=== PATIENT | male | born 1960 | race Caucasian/White ===

== ENCOUNTER → 2022-01-16 | Outpatient (CLI) | payer OTHER ==
--- NOTE | 2022-01-16 16:02 | RAD ---
EXAM: XR LUMBAR SPINE 2-3V, XR HAND_RIGHT 2 VIEWS 01/16/2022 11:20 AM CLINICAL INDICATION: Low back pain in right hand pain COMPARISON: None TECHNIQUE: PA and lateral views of the right hand. AP, lateral, and coned-down lateral views of the lumbar spine FINDINGS: Right hand: Exam is limited due to positioning with flexion of the fingers. The bones are diffusely d emineralized. There is no acute fracture or malalignment. Probable mild degenerative joint disease of the second and third DIP joints. No definite erosions. Soft tissues normal. Lumbar spine: There are 5 nonrib-bearing lumbar vertebral bodies. No acute fracture. Alignment is nor mal. There is mild/moderate disc space narrowing at L4-L5 and mild disc space narrowing at L1-L2 thro ugh L3-L4. Small anterior and lateral osteophytes. No significant facet arthrosis. IMPRESSION: 1. Right hand: Limited evaluation due to positioning with flexion of the fingers. Osteopenia. Probabl e mild degenerative joint disease at the second and third DIP joints. 2. Lumbar spine: Mild degenerative joint disease, greatest at L4-L5. Electronically signed by: Eileen King MD (01/16/2022 4:00 PM) [id number]
== END ==
LOC: RAD 11:01
PROVIDERS: ATTEND Family Medicine
DX: Z02.71 Encounter for disability determination (principal); M47.816 Spondylosis without myelopathy or radiculopathy, lumbar region; M85.841 Other specified disorders of bone density and structure, right hand; M48.061 Spinal stenosis, lumbar region without neurogenic claudication; M25.78 Osteophyte, vertebrae
CPT/HCPCS: 72100; 73120